=== PATIENT | male | born 1965 | race African-American/Black ===

== ENCOUNTER 2018-07-22 20:41 | Emergency (ER) | payer MEDICAID, OTHER ==
[~2018-07-22] VITALS: Ht 175.3 cm; Wt 81.8 kg
[2018-07-23 03:52] LABS: CHLORIDE 106 mEq/L (98-107)
[2018-07-23 04:13] LABS: BASOPHILS % 0.4 % (0.0-2.0); EOSINOPHILS % 0.9 % (0.0-5.0); HEMATOCRIT. 36.6 % (42.0-52.0); HEMOGLOBIN. 12.1 g/dL (14.0-18.0); LYMPHOCYTES % 34.9 % (20.0-50.0); MEAN CORPUSCULAR HEMOGLOBIN 28.5 pg (28.0-32.0); MEAN CORPUSCULAR VOLUME 86.1 fL (80.0-94.0); MEAN PLATELET VOLUME 8.1 fl (7.4-10.4); MONOCYTES % 5.6 % (2.0-8.0); NEUTROPHILS % 58.2 % (40.0-76.0); PLATELET 326 x1000/uL (130-400); RED BLOOD CELL COUNT 4.25 mill/uL (4.7-6.1); RED CELL DISTRIBUTION WIDTH 13.7 % (11.6-14.6)
[2018-07-23 10:30] VITALS: BP 130/65
== END 2018-07-23 12:05 | disposition left against medical advice (07) ==
LOC: ER 20:41
DX: R07.9 Chest pain, unspecified (principal); F17.200 Nicotine dependence, unspecified, uncomplicated
CPT/HCPCS: 36415; 71045; 84484; 93005; 99284

== ENCOUNTER 2018-07-25 22:43 | Emergency (ER) | payer OTHER | END 2018-07-25 23:41 | disposition left against medical advice (07) | LOC: ER 23:41 | DX: Z53.21 Procedure and treatment not carried out due to patient leaving prior to being seen by health care provider (principal) ==

== ENCOUNTER 2018-07-25 23:54 | Emergency (ER) | payer MEDICAID, OTHER ==
[~2018-07-25] VITALS: Ht 177.8 cm; Wt 71.0 kg
[2018-07-26 00:08] VITALS: BP 139/76
== END 2018-07-26 03:13 | disposition left against medical advice (07) ==
LOC: ER 07-26 02:27
DX: R07.89 Other chest pain (principal); F17.200 Nicotine dependence, unspecified, uncomplicated; F12.10 Cannabis abuse, uncomplicated
CPT/HCPCS: 99281

== ENCOUNTER 2018-08-12 23:30 | Emergency (ER) | payer MEDICAID ==
[~2018-08-12] VITALS: Ht 177.8 cm; Wt 76.0 kg
[2018-08-13 00:04] VITALS: BP 126/76
== END 2018-08-13 00:15 | disposition left against medical advice (07) ==
LOC: ER 23:30
DX: R51 Headache (principal); Z53.21 Procedure and treatment not carried out due to patient leaving prior to being seen by health care provider

== ENCOUNTER 2018-08-13 22:21 | Emergency (ER) | payer MEDICAID ==
[~2018-08-13] VITALS: Ht 177.8 cm; Wt 78.0 kg
[2018-08-14] MEDS ORDERED: LORAZEPAM 0.5MG TABLET PO ONE (01:15)
[2018-08-14] MEDS ORDERED: ACETAMINOPHEN 325MG TABLET PO ONE (01:15)
[2018-08-14 02:04] LABS: BASOPHILS % 0.4 % (0.0-2.0); EOSINOPHILS % 2.3 % (0.0-5.0); HEMATOCRIT. 33.9 % (42.0-52.0); HEMOGLOBIN. 11.2 g/dL (14.0-18.0); MEAN CORPUSCULAR HEMOGLOBIN 28.7 pg (28.0-32.0); MEAN CORPUSCULAR VOLUME 86.5 fL (80.0-94.0); MEAN PLATELET VOLUME 8.2 fl (7.4-10.4); MONOCYTES % 5.7 % (2.0-8.0); NEUTROPHILS % 59.6 % (40.0-76.0); PLATELET 274 x1000/uL (130-400); RED BLOOD CELL COUNT 3.91 mill/uL (4.7-6.1); RED CELL DISTRIBUTION WIDTH 13.5 % (11.6-14.6)
[2018-08-14 02:11] LABS: CHLORIDE 108 mEq/L (98-107)
[2018-08-14 05:28] LABS: CLARITY URINE CLEAR (CLEAR); COLOR URINE YELLOW (YELLOW); KETONES URINE NEGATIVE (NEGATIVE); LEUKOCYTE ESTERASE URINE NEGATIVE (NEGATIVE); NITRITE URINE NEGATIVE (NEGATIVE); OCCULT BLOOD URINE NEGATIVE (NEGATIVE); PH URINE 7.5 (4.5-8.0); PROTEIN URINE NEGATIVE (NEGATIVE); SPECIFIC GRAVITY URINE 1.006 (1.005-1.030); UROBILINOGEN URINE 0.2 E.U./dL (0.2-1.0)
[2018-08-14 05:55] VITALS: BP 116/68
== END 2018-08-14 06:04 | disposition home or self-care (01) ==
LOC: ER 22:21
DX: R10.30 Lower abdominal pain, unspecified (principal); F32.9 Major depressive disorder, single episode, unspecified; F20.9 Schizophrenia, unspecified; F12.10 Cannabis abuse, uncomplicated; F17.200 Nicotine dependence, unspecified, uncomplicated
CPT/HCPCS: 36415; 80048; 99283

== ENCOUNTER 2018-08-17 18:24 | Emergency (ER) | payer MEDICAID ==
[~2018-08-17] VITALS: Ht 177.8 cm; Wt 79.0 kg
[2018-08-17 18:35] VITALS: BP 129/89
== END 2018-08-18 08:18 | disposition left against medical advice (07) ==
LOC: ER 18:24
DX: H92.03 Otalgia, bilateral (principal); R51 Headache; Z53.21 Procedure and treatment not carried out due to patient leaving prior to being seen by health care provider

== ENCOUNTER 2018-08-27 01:24 | Emergency (ER) | payer MEDICAID ==
[~2018-08-27] VITALS: Ht 177.8 cm; Wt 79.0 kg
[2018-08-27 01:36] VITALS: BP 139/80
== END 2018-08-27 04:00 | disposition left against medical advice (07) ==
LOC: ER 01:24
DX: Z53.21 Procedure and treatment not carried out due to patient leaving prior to being seen by health care provider (principal)

== ENCOUNTER 2018-08-30 00:33 | Emergency (ER) | payer MEDICAID ==
[~2018-08-30] VITALS: Ht 177.8 cm; Wt 74.0 kg
[2018-08-30 01:45] VITALS: BP 128/64
== END 2018-08-30 01:42 | disposition left against medical advice (07) ==
LOC: ER 00:33
DX: R51 Headache (principal); Z53.21 Procedure and treatment not carried out due to patient leaving prior to being seen by health care provider

== ENCOUNTER 2018-09-24 02:23 | Emergency (ER) | payer MEDICAID ==
[~2018-09-24] VITALS: Ht 177.8 cm; Wt 82.0 kg
[2018-09-24] MEDS ORDERED: ONDANSETRON 4MG ODT PO ONE (05:15)
[2018-09-24] MEDS ORDERED: LIDOCAINE HCL 2% JELLY 5ML TOP ONE (05:15)
[2018-09-24 06:14] VITALS: BP 118/57
== END 2018-09-24 06:17 | disposition home or self-care (01) ==
LOC: ER 02:23
DX: R10.9 Unspecified abdominal pain (principal); K64.9 Unspecified hemorrhoids; R19.7 Diarrhea, unspecified
CPT/HCPCS: 99283; Q0162

== ENCOUNTER 2018-09-24 20:39 | Emergency (ER) | payer MEDICAID | END 2018-09-24 22:29 | disposition left against medical advice (07) | LOC: ER 20:39 | DX: Z53.21 Procedure and treatment not carried out due to patient leaving prior to being seen by health care provider (principal) ==

== ENCOUNTER 2018-09-24 23:34 | Emergency (ER) | payer MEDICAID ==
[~2018-09-24] VITALS: Ht 177.8 cm; Wt 76.0 kg
[2018-09-25 02:45] VITALS: BP 122/68
== END 2018-09-25 07:54 | disposition left against medical advice (07) ==
LOC: ER 23:34
DX: K64.9 Unspecified hemorrhoids (principal); F17.200 Nicotine dependence, unspecified, uncomplicated; F12.10 Cannabis abuse, uncomplicated
CPT/HCPCS: 99281

== ENCOUNTER 2018-09-25 21:52 | Emergency (ER) | payer MEDICAID ==
[~2018-09-25] VITALS: Ht 177.8 cm; Wt 78.0 kg
[2018-09-25 23:09] VITALS: BP 123/70
== END 2018-09-26 01:00 | disposition left against medical advice (07) ==
LOC: ER 22:45
DX: Z53.21 Procedure and treatment not carried out due to patient leaving prior to being seen by health care provider (principal)

== ENCOUNTER 2018-09-26 02:22 | Emergency (ER) | payer MEDICAID ==
[~2018-09-26] VITALS: Ht 182.9 cm; Wt 77.2 kg
[2018-09-26 04:48] LABS: BASOPHILS % 0.8 % (0.0-2.0); HEMATOCRIT. 37.5 % (42.0-52.0); HEMOGLOBIN. 12.4 g/dL (14.0-18.0); LYMPHOCYTES % 40.8 % (20.0-50.0); MEAN CORPUSCULAR HEMOGLOBIN 28.3 pg (28.0-32.0); MEAN PLATELET VOLUME 7.7 fl (7.4-10.4); MONOCYTES % 7.8 % (2.0-8.0); NEUTROPHILS % 48.6 % (40.0-76.0); PLATELET 292 x1000/uL (130-400); RED BLOOD CELL COUNT 4.36 mill/uL (4.7-6.1); RED CELL DISTRIBUTION WIDTH 13.4 % (11.6-14.6)
[2018-09-26 04:53] LABS: CHLORIDE 109 mEq/L (98-107)
[2018-09-26 04:59] LABS: ETHANOL BLOOD < 10 mg/dL
[2018-09-26] MEDS ORDERED: ONDANSETRON HCL 4MG/2ML INJ IV STA (06:45)
[2018-09-26] MEDS ORDERED: SODIUM CHLORIDE 0.9% 1,000 ML IV ONE (06:45)
[2018-09-26 07:25] VITALS: BP 112/68
[2018-09-26 08:09] LABS: CLARITY URINE CLEAR (CLEAR); COLOR URINE YELLOW (YELLOW); KETONES URINE NEGATIVE (NEGATIVE); LEUKOCYTE ESTERASE URINE NEGATIVE (NEGATIVE); NITRITE URINE NEGATIVE (NEGATIVE); OCCULT BLOOD URINE TRACE (NEGATIVE); PH URINE 6.5 (4.5-8.0); PROTEIN URINE NEGATIVE (NEGATIVE); SPECIFIC GRAVITY URINE 1.005 (1.005-1.030); UROBILINOGEN URINE 0.2 E.U./dL (0.2-1.0)
[2018-09-26 08:41] LABS: *AMPHETAMINES SCREEN URINE NEGATIVE (NEGATIVE)
[2018-09-26 08:42] LABS: *BARBITURATES SCREEN URINE NEGATIVE (NEGATIVE); *BENZODIAZEPINES SCREEN URINE NEGATIVE (NEGATIVE); *COCAINE SCREEN URINE NEGATIVE (NEGATIVE); METHADONE URINE SCREEN NEGATIVE (NEGATIVE); OPIATES URINE SCREEN NEGATIVE (NEGATIVE); PHENCYCLIDINE URINE SCREEN NEGATIVE (NEGATIVE)
[2018-09-26 08:43] LABS: CANNABINOID URINE SCREEN PRESUMTIVE POSITIVE (NEGATIVE)
== END 2018-09-26 10:14 | disposition left against medical advice (07) ==
LOC: ER 02:22
DX: T65.91XA Toxic effect of unspecified substance, accidental (unintentional), initial encounter (principal); F12.10 Cannabis abuse, uncomplicated; Y92.89 Other specified places as the place of occurrence of the external cause
CPT/HCPCS: 36415; 80053; 80305; 80307; 80329; 81003; 83690; 85025; 85610; 96361; 96374; 99283; J2405; J7030

== ENCOUNTER 2018-09-27 03:23 | Emergency (ER) | payer MEDICAID ==
[~2018-09-27] VITALS: Ht 188 cm; Wt 82.0 kg
[2018-09-27 05:26] VITALS: BP 145/86
== END 2018-09-27 07:26 | disposition left against medical advice (07) ==
LOC: ER 03:46
DX: R10.30 Lower abdominal pain, unspecified (principal); Z53.21 Procedure and treatment not carried out due to patient leaving prior to being seen by health care provider

== ENCOUNTER 2018-10-10 23:21 | Emergency (ER) | payer MEDICAID ==
[~2018-10-10] VITALS: Ht 177.8 cm; Wt 72.8 kg
[2018-10-11] MEDS ORDERED: SODIUM CHLORIDE 0.9% 1,000 ML IV ONE (07:43)
[2018-10-11] MEDS ORDERED: ONDANSETRON HCL 4MG/2ML INJ IV ONE (08:00)
[2018-10-11 08:19] LABS: BASOPHILS % 0.6 % (0.0-2.0); EOSINOPHILS % 1.8 % (0.0-5.0); HEMOGLOBIN. 12.5 g/dL (14.0-18.0); MEAN CORPUSCULAR HEMOGLOBIN 28.5 pg (28.0-32.0); MEAN CORPUSCULAR VOLUME 86.8 fL (80.0-94.0); MEAN PLATELET VOLUME 7.7 fl (7.4-10.4); MONOCYTES % 6.5 % (2.0-8.0); NEUTROPHILS % 66.1 % (40.0-76.0); PLATELET 310 x1000/uL (130-400); RED BLOOD CELL COUNT 4.38 mill/uL (4.7-6.1); RED CELL DISTRIBUTION WIDTH 13.5 % (11.6-14.6)
[2018-10-11 08:24] LABS: CHLORIDE 110 mEq/L (98-107)
[2018-10-11 10:02] VITALS: BP 118/68
== END 2018-10-11 10:06 | disposition home or self-care (01) ==
LOC: ER 23:21
DX: R11.10 Vomiting, unspecified (principal); R19.7 Diarrhea, unspecified; R10.9 Unspecified abdominal pain; F12.10 Cannabis abuse, uncomplicated; F17.200 Nicotine dependence, unspecified, uncomplicated
CPT/HCPCS: 36415; 80053; 83690; 85025; 96361; 96374; 99283; J2405; J7030

== ENCOUNTER 2018-10-11 21:15 | Emergency (ER) | payer MEDICAID | END 2018-10-11 22:05 | disposition left against medical advice (07) | LOC: ER 21:15 | DX: M79.18 Myalgia, other site (principal); Z53.21 Procedure and treatment not carried out due to patient leaving prior to being seen by health care provider ==

== ENCOUNTER 2018-10-12 20:00 | Emergency (ER) | payer MEDICAID ==
[~2018-10-12] VITALS: Ht 177.8 cm; Wt 75.0 kg
[2018-10-13 04:38] VITALS: BP 132/68
== END 2018-10-13 09:30 | disposition left against medical advice (07) ==
LOC: ER 21:20
DX: Z53.21 Procedure and treatment not carried out due to patient leaving prior to being seen by health care provider (principal)

== ENCOUNTER 2018-10-14 22:54 | Emergency (ER) | payer MEDICAID | END 2018-10-15 00:43 | disposition left against medical advice (07) | LOC: ER 22:54 | DX: Z53.21 Procedure and treatment not carried out due to patient leaving prior to being seen by health care provider (principal) ==

== ENCOUNTER 2018-10-23 00:27 | Emergency (ER) | payer MEDICAID ==
[~2018-10-23] VITALS: Ht 177.8 cm; Wt 78.0 kg
[2018-10-23] MEDS ORDERED: IBUPROFEN 600MG TABLET PO ONE (02:45)
[2018-10-23 04:22] VITALS: BP 112/70
== END 2018-10-23 04:15 | disposition home or self-care (01) ==
LOC: ER 00:27
DX: M65.352 Trigger finger, left little finger (principal); M65.332 Trigger finger, left middle finger; M65.312 Trigger thumb, left thumb; F12.10 Cannabis abuse, uncomplicated; F17.200 Nicotine dependence, unspecified, uncomplicated
CPT/HCPCS: 29130; 73130; 99283

== ENCOUNTER 2018-10-25 00:29 | Emergency (ER) | payer MEDICAID ==
[~2018-10-25] VITALS: Ht 177.8 cm; Wt 71.2 kg
[2018-10-25] MEDS ORDERED: KETOROLAC 30MG/ML VIAL IV STA (03:08)
[2018-10-25] MEDS ORDERED: SODIUM CHLORIDE 0.9% 1,000 ML IV ONE (03:08)
[2018-10-25] MEDS ORDERED: ONDANSETRON HCL 4MG/2ML INJ IV STA (03:08)
[2018-10-25 03:28] LABS: BASOPHILS % 0.6 % (0.0-2.0); EOSINOPHILS % 2.8 % (0.0-5.0); HEMATOCRIT. 36.6 % (42.0-52.0); LYMPHOCYTES % 42.4 % (20.0-50.0); MEAN CORPUSCULAR HEMOGLOBIN 28.3 pg (28.0-32.0); MEAN PLATELET VOLUME 7.2 fl (7.4-10.4); MONOCYTES % 7.2 % (2.0-8.0); PLATELET 295 x1000/uL (130-400); RED BLOOD CELL COUNT 4.25 mill/uL (4.7-6.1); RED CELL DISTRIBUTION WIDTH 13.2 % (11.6-14.6)
[2018-10-25 03:34] LABS: CHLORIDE 107 mEq/L (98-107)
[2018-10-25 03:39] LABS: ETHANOL BLOOD < 10 mg/dL
[2018-10-25 07:08] VITALS: BP 108/62
== END 2018-10-25 09:06 | disposition home or self-care (01) ==
LOC: ER 00:29
DX: R10.9 Unspecified abdominal pain (principal); F17.200 Nicotine dependence, unspecified, uncomplicated; R11.10 Vomiting, unspecified; R45.851 Suicidal ideations
CPT/HCPCS: 36415; 80053; 80320; 83690; 85025; 96361; 96374; 96375; 99283; J1885; J2405; J7030; G0480

== ENCOUNTER 2018-10-29 22:31 | Emergency (ER) | payer MEDICAID ==
[~2018-10-29] VITALS: Ht 177.8 cm; Wt 73.0 kg
[2018-10-30 01:50] VITALS: BP 119/70
[2018-10-30] MEDS ORDERED: ONDANSETRON HCL 4MG/2ML INJ IV STA (03:48)
[2018-10-30] MEDS ORDERED: SODIUM CHLORIDE 0.9% 1,000 ML IV ONE (03:48)
[2018-10-30] MEDS ORDERED: KETOROLAC 30MG/ML VIAL IV STA (03:48)
[2018-10-30] MEDS ORDERED: FAMOTIDINE 20MG/2ML VIAL IV STA (03:48)
[2018-10-30 04:08] LABS: EOSINOPHILS % 2.3 % (0.0-5.0); HEMATOCRIT. 36.9 % (42.0-52.0); HEMOGLOBIN. 12.1 g/dL (14.0-18.0); LYMPHOCYTES % 37.3 % (20.0-50.0); MEAN CORPUSCULAR HEMOGLOBIN 28.4 pg (28.0-32.0); MEAN CORPUSCULAR VOLUME 86.7 fL (80.0-94.0); MEAN PLATELET VOLUME 7.5 fl (7.4-10.4); MONOCYTES % 8.3 % (2.0-8.0); NEUTROPHILS % 51.1 % (40.0-76.0); PLATELET 271 x1000/uL (130-400); RED BLOOD CELL COUNT 4.25 mill/uL (4.7-6.1); RED CELL DISTRIBUTION WIDTH 13.1 % (11.6-14.6)
[2018-10-30 04:11] LABS: CHLORIDE 110 mEq/L (98-107)
== END 2018-10-30 05:45 | disposition home or self-care (01) ==
LOC: ER 22:31
DX: K52.9 Noninfective gastroenteritis and colitis, unspecified (principal); F17.200 Nicotine dependence, unspecified, uncomplicated; F12.10 Cannabis abuse, uncomplicated
CPT/HCPCS: 36415; 80053; 83690; 85025; 99283; J7030

== ENCOUNTER 2018-11-11 02:01 | Emergency (ER) | payer MEDICAID ==
[~2018-11-11] VITALS: Ht 177.8 cm; Wt 77.0 kg
[2018-11-11] MEDS ORDERED: ACETAMINOPHEN 325MG TABLET PO ONE (04:30)
[2018-11-11] MEDS ORDERED: FAMOTIDINE 20MG TABLET PO ONE (04:30)
[2018-11-11 05:25] VITALS: BP 121/65
== END 2018-11-11 05:34 | disposition home or self-care (01) ==
LOC: ER 03:39
DX: R10.13 Epigastric pain (principal); F12.10 Cannabis abuse, uncomplicated; F17.210 Nicotine dependence, cigarettes, uncomplicated
CPT/HCPCS: 99283

== ENCOUNTER 2018-11-12 23:07 | Emergency (ER) | payer MEDICAID | END 2018-11-13 02:19 | disposition left against medical advice (07) | LOC: ER 23:07 | DX: Z53.21 Procedure and treatment not carried out due to patient leaving prior to being seen by health care provider (principal) ==

== ENCOUNTER 2018-11-14 00:13 | Emergency (ER) | payer MEDICAID ==
[~2018-11-14] VITALS: Ht 177.8 cm; Wt 78.0 kg
[2018-11-14] MEDS ORDERED: OLANZAPINE 10MG TABLET PO SCH (01:45)
[2018-11-14 10:30] VITALS: BP 139/68
== END 2018-11-14 11:36 | disposition home or self-care (01) ==
LOC: ER 00:13
DX: H93.19 Tinnitus, unspecified ear (principal); R51 Headache; F20.9 Schizophrenia, unspecified; Z59.0 Homelessness
CPT/HCPCS: 99283

== ENCOUNTER 2018-11-14 22:30 | Emergency (ER) | payer MEDICAID | END 2018-11-15 00:34 | disposition left against medical advice (07) | LOC: ER 22:30 | DX: R68.89 Other general symptoms and signs (principal); Z53.21 Procedure and treatment not carried out due to patient leaving prior to being seen by health care provider ==

== ENCOUNTER 2018-11-15 11:06 | Emergency (ER) | payer MEDICAID ==
[~2018-11-15] VITALS: Ht 177.8 cm; Wt 77.0 kg
[2018-11-15 11:23] VITALS: BP 143/89
== END 2018-11-15 11:55 | disposition home or self-care (01) ==
LOC: ER 11:06
DX: M65.352 Trigger finger, left little finger (principal); F17.200 Nicotine dependence, unspecified, uncomplicated; F12.10 Cannabis abuse, uncomplicated
CPT/HCPCS: 29130; 99283

== ENCOUNTER 2018-11-16 00:29 | Emergency (ER) | payer MEDICAID | END 2018-11-16 00:44 | disposition left against medical advice (07) | LOC: ER 00:29 | DX: Z53.21 Procedure and treatment not carried out due to patient leaving prior to being seen by health care provider (principal) ==

== ENCOUNTER 2018-11-17 00:38 | Emergency (ER) | payer MEDICAID ==
[~2018-11-17] VITALS: Ht 177.8 cm; Wt 73.0 kg
[2018-11-17 06:57] VITALS: BP 118/58
== END 2018-11-17 07:01 | disposition home or self-care (01) ==
LOC: ER 00:38
DX: Z13.9 Encounter for screening, unspecified (principal); F17.200 Nicotine dependence, unspecified, uncomplicated; F12.10 Cannabis abuse, uncomplicated
CPT/HCPCS: 99283

== ENCOUNTER 2018-11-19 00:24 | Emergency (ER) | payer MEDICAID ==
[~2018-11-19] VITALS: Ht 177.8 cm; Wt 78.0 kg
[2018-11-19] MEDS ORDERED: IBUPROFEN 600MG TABLET PO ONE (03:00)
[2018-11-19 06:47] VITALS: BP 115/69
== END 2018-11-19 06:49 | disposition home or self-care (01) ==
LOC: ER 00:24
DX: J02.9 Acute pharyngitis, unspecified (principal); H92.02 Otalgia, left ear; F12.90 Cannabis use, unspecified, uncomplicated; F17.210 Nicotine dependence, cigarettes, uncomplicated
CPT/HCPCS: 99283

== ENCOUNTER 2018-11-21 22:12 | Emergency (ER) | payer MEDICAID ==
[~2018-11-21] VITALS: Ht 177.8 cm; Wt 68.2 kg
[2018-11-21 23:02] VITALS: BP 120/78
== END 2018-11-22 | disposition left against medical advice (07) ==
LOC: ER 22:12
DX: Z53.21 Procedure and treatment not carried out due to patient leaving prior to being seen by health care provider (principal)

== ENCOUNTER 2018-11-23 04:48 | Emergency (ER) | payer MEDICAID ==
[~2018-11-23] VITALS: Ht 182.9 cm; Wt 82.0 kg
[2018-11-23 06:09] VITALS: BP 117/71
== END 2018-11-23 07:59 | disposition left against medical advice (07) ==
LOC: ER 04:48
DX: Z53.21 Procedure and treatment not carried out due to patient leaving prior to being seen by health care provider (principal)

== ENCOUNTER 2018-11-24 06:52 | Emergency (ER) | payer MEDICAID | END 2018-11-24 09:05 | disposition left against medical advice (07) | LOC: ER 06:52 | DX: R68.89 Other general symptoms and signs (principal); Z53.21 Procedure and treatment not carried out due to patient leaving prior to being seen by health care provider ==

== ENCOUNTER 2019-01-06 21:47 | Emergency (ER) | payer MEDICAID ==
[~2019-01-06] VITALS: Ht 177.8 cm; Wt 81.0 kg
[2019-01-07] MEDS ORDERED: ALBUTEROL (0.083%) 2.5MG/3ML NEB HHN ONE (00:30)
[2019-01-07 01:26] VITALS: BP 123/74
== END 2019-01-07 01:31 | disposition home or self-care (01) ==
LOC: ER 21:47
DX: J06.9 Acute upper respiratory infection, unspecified (principal); F17.210 Nicotine dependence, cigarettes, uncomplicated; F12.10 Cannabis abuse, uncomplicated
CPT/HCPCS: 71045; 94640; 99283; J7611; Z7610

== ENCOUNTER 2019-01-31 16:58 | Emergency (ER) | payer MEDICAID | END 2019-01-31 19:06 | disposition left against medical advice (07) | LOC: ER 16:58 | DX: R05 Cough (principal); Z53.21 Procedure and treatment not carried out due to patient leaving prior to being seen by health care provider ==

== ENCOUNTER 2019-03-12 00:50 | Emergency (ER) | payer MEDICAID ==
[~2019-03-12] VITALS: Ht 190.5 cm; Wt 92.0 kg
[2019-03-12] MEDS ORDERED: SODIUM CHLORIDE 0.9% 1,000 ML IV ONE (01:34)
[2019-03-12] MEDS ORDERED: LORAZEPAM 2MG/ML CPJ IV ONE (01:45)
[2019-03-12 02:24] LABS: CLARITY URINE CLOUDY (CLEAR); COLOR URINE DARK YELLOW (YELLOW); KETONES URINE 2+ (NEGATIVE); LEUKOCYTE ESTERASE URINE TRACE (NEGATIVE); NITRITE URINE NEGATIVE (NEGATIVE); OCCULT BLOOD URINE 3+ (NEGATIVE); PROTEIN URINE 3+ (NEGATIVE); SPECIFIC GRAVITY URINE 1.025 (1.005-1.030)
[2019-03-12 02:35] LABS: BASOPHILS % 0.3 % (0.0-2.0); EOSINOPHILS % 0.1 % (0.0-5.0); HEMOGLOBIN. 12.3 g/dL (14.0-18.0); LYMPHOCYTES % 7.7 % (20.0-50.0); MEAN CORPUSCULAR HEMOGLOBIN 28.6 pg (28.0-32.0); MEAN CORPUSCULAR VOLUME 86.1 fL (80.0-94.0); MEAN PLATELET VOLUME 7.5 fl (7.4-10.4); MONOCYTES % 5.4 % (2.0-8.0); NEUTROPHILS % 86.5 % (40.0-76.0); PLATELET 280 x1000/uL (130-400); RED BLOOD CELL COUNT 4.29 mill/uL (4.7-6.1); RED CELL DISTRIBUTION WIDTH 14.3 % (11.6-14.6)
[2019-03-12 02:38] LABS: *AMPHETAMINES SCREEN URINE PRESUMTIVE POSITIVE (NEGATIVE); *BARBITURATES SCREEN URINE NEGATIVE (NEGATIVE); *BENZODIAZEPINES SCREEN URINE NEGATIVE (NEGATIVE); *COCAINE SCREEN URINE NEGATIVE (NEGATIVE); CANNABINOID URINE SCREEN PRESUMTIVE POSITIVE (NEGATIVE); METHADONE URINE SCREEN NEGATIVE (NEGATIVE); OPIATES URINE SCREEN NEGATIVE (NEGATIVE); PHENCYCLIDINE URINE SCREEN NEGATIVE (NEGATIVE)
[2019-03-12 02:40] LABS: CHLORIDE 109 mEq/L (98-107)
[2019-03-12 02:44] LABS: ETHANOL BLOOD < 10 mg/dL
[2019-03-12 11:25] VITALS: BP 160/98
== END 2019-03-12 11:40 | disposition home or self-care (01) ==
LOC: ER 00:50
DX: R44.1 Visual hallucinations (principal); F12.10 Cannabis abuse, uncomplicated; F15.10 Other stimulant abuse, uncomplicated
CPT/HCPCS: 36415; 71045; 80053; 80305; 80320; 81003; 84484; 85025; 93005; 96374; 99284; J2060; J7030; G0480

== ENCOUNTER 2019-03-13 18:43 | Emergency (ER) | payer MEDICAID ==
[~2019-03-13] VITALS: Ht 177.8 cm; Wt 73.0 kg
[2019-03-14 01:04] LABS: BASOPHILS % 0.5 % (0.0-2.0); EOSINOPHILS % 0.3 % (0.0-5.0); HEMATOCRIT. 38.7 % (42.0-52.0); HEMOGLOBIN. 12.9 g/dL (14.0-18.0); MEAN CORPUSCULAR HEMOGLOBIN 28.3 pg (28.0-32.0); MEAN CORPUSCULAR VOLUME 84.9 fL (80.0-94.0); MEAN PLATELET VOLUME 7.7 fl (7.4-10.4); NEUTROPHILS % 64.2 % (40.0-76.0); PLATELET 277 x1000/uL (130-400); RED BLOOD CELL COUNT 4.56 mill/uL (4.7-6.1); RED CELL DISTRIBUTION WIDTH 13.9 % (11.6-14.6)
[2019-03-14 01:04] LABS: CLARITY URINE CLEAR (CLEAR); COLOR URINE DARK YELLOW (YELLOW); KETONES URINE 1+ (NEGATIVE); LEUKOCYTE ESTERASE URINE TRACE (NEGATIVE); NITRITE URINE NEGATIVE (NEGATIVE); OCCULT BLOOD URINE 2+ (NEGATIVE); PROTEIN URINE 1+ (NEGATIVE); SPECIFIC GRAVITY URINE 1.027 (1.005-1.030)
[2019-03-14 01:05] LABS: CHLORIDE 103 mEq/L (98-107)
[2019-03-14 01:10] LABS: ETHANOL BLOOD < 10 mg/dL
[2019-03-14 01:17] LABS: *AMPHETAMINES SCREEN URINE PRESUMTIVE POSITIVE (NEGATIVE); *BARBITURATES SCREEN URINE NEGATIVE (NEGATIVE); *BENZODIAZEPINES SCREEN URINE NEGATIVE (NEGATIVE); *COCAINE SCREEN URINE NEGATIVE (NEGATIVE); CANNABINOID URINE SCREEN PRESUMTIVE POSITIVE (NEGATIVE); METHADONE URINE SCREEN NEGATIVE (NEGATIVE)
[2019-03-14 01:18] LABS: OPIATES URINE SCREEN NEGATIVE (NEGATIVE); PHENCYCLIDINE URINE SCREEN NEGATIVE (NEGATIVE)
[2019-03-14 03:35] VITALS: BP 112/67
== END 2019-03-14 05:57 | disposition home or self-care (01) ==
LOC: ER 20:30
DX: K29.00 Acute gastritis without bleeding (principal); F19.10 Other psychoactive substance abuse, uncomplicated; R31.9 Hematuria, unspecified; F12.10 Cannabis abuse, uncomplicated; F15.10 Other stimulant abuse, uncomplicated; F17.200 Nicotine dependence, unspecified, uncomplicated
CPT/HCPCS: 36415; 80305; 80307; 80320; 80329; 99283; G0480

== ENCOUNTER 2019-04-18 00:33 | Emergency (ER) | payer MEDICAID ==
[~2019-04-18] VITALS: Ht 177.8 cm; Wt 68.9 kg
[2019-04-18] MEDS ORDERED: BACITRACIN ZINC OINT UDPKT TOP ONE (07:30)
[2019-04-18] MEDS ORDERED: ACETAMINOPHEN 500MG TABLET PO ONE (07:30)
[2019-04-18] MEDS ORDERED: BACITRACIN 15GM TUBE TOP ONE (07:30)
[2019-04-18 08:17] VITALS: BP 121/74
== END 2019-04-18 08:20 | disposition home or self-care (01) ==
LOC: ER 00:33
DX: S60.511A Abrasion of right hand, initial encounter (principal); R10.9 Unspecified abdominal pain; H93.13 Tinnitus, bilateral; F17.200 Nicotine dependence, unspecified, uncomplicated; F12.10 Cannabis abuse, uncomplicated; F15.10 Other stimulant abuse, uncomplicated; F31.9 Bipolar disorder, unspecified; F20.9 Schizophrenia, unspecified; X58.XXXA Exposure to other specified factors, initial encounter; Y93.89 Activity, other specified; Y92.89 Other specified places as the place of occurrence of the external cause; Y99.8 Other external cause status
CPT/HCPCS: 99283

== ENCOUNTER 2019-05-25 20:39 | Emergency (ER) | payer MEDICAID | END 2019-05-25 22:00 | disposition left against medical advice (07) | LOC: ER 20:39 | DX: R10.9 Unspecified abdominal pain (principal); Z53.21 Procedure and treatment not carried out due to patient leaving prior to being seen by health care provider ==

== ENCOUNTER 2019-05-28 02:11 | Emergency (ER) | payer MEDICAID ==
[~2019-05-28] VITALS: Ht 177.8 cm; Wt 66.6 kg
[2019-05-28 03:35] VITALS: BP 112/68
== END 2019-05-28 05:46 | disposition home or self-care (01) ==
LOC: ER 02:11
DX: F20.9 Schizophrenia, unspecified (principal); R10.9 Unspecified abdominal pain; F17.200 Nicotine dependence, unspecified, uncomplicated; F12.10 Cannabis abuse, uncomplicated; Z59.0 Homelessness
CPT/HCPCS: 99282; Z7610

== ENCOUNTER 2019-06-17 19:25 | Emergency (ER) | payer MEDICAID | END 2019-06-17 20:37 | disposition left against medical advice (07) | LOC: ER 19:25 | DX: Z53.21 Procedure and treatment not carried out due to patient leaving prior to being seen by health care provider (principal) ==

== ENCOUNTER 2019-06-25 19:25 | Emergency (ER) | payer MEDICAID | END 2019-06-25 21:44 | disposition left against medical advice (07) | LOC: ER 19:25 | DX: R10.9 Unspecified abdominal pain (principal); Z53.21 Procedure and treatment not carried out due to patient leaving prior to being seen by health care provider ==

== ENCOUNTER 2022-02-24 01:20 | Emergency (ER) | payer MEDICAID, OTHER | END 2022-02-24 02:25 | disposition left against medical advice (07) | LOC: ER 01:20 | DX: Z53.21 Procedure and treatment not carried out due to patient leaving prior to being seen by health care provider (principal) ==

== ENCOUNTER 2022-02-24 10:30 | Emergency (ER) | payer OTHER | END 2022-02-24 11:33 | disposition left against medical advice (07) | LOC: ER 11:26 | DX: Z53.21 Procedure and treatment not carried out due to patient leaving prior to being seen by health care provider (principal) ==

== ENCOUNTER 2022-03-01 21:45 | Emergency (ER) | payer OTHER | END 2022-03-01 22:55 | disposition left against medical advice (07) | LOC: ER 21:45 | DX: Z53.21 Procedure and treatment not carried out due to patient leaving prior to being seen by health care provider (principal) ==

== ENCOUNTER 2022-03-04 18:07 | Emergency (ER) | payer OTHER | END 2022-03-04 19:38 | disposition left against medical advice (07) | LOC: ER 18:07 | DX: Z53.21 Procedure and treatment not carried out due to patient leaving prior to being seen by health care provider (principal) ==

== ENCOUNTER 2022-03-05 22:57 | Emergency (ER) | payer OTHER | END 2022-03-05 23:18 | disposition left against medical advice (07) | LOC: ER 22:57 | DX: Z53.21 Procedure and treatment not carried out due to patient leaving prior to being seen by health care provider (principal) ==